=== PATIENT | male | born 1990 | race Two or more races ===

== ENCOUNTER 2018-09-15 05:00 | Emergency (ER) | payer MEDICAID ==
[~2018-09-15] VITALS: Ht 175.3 cm; Wt 114.0 kg
[2018-09-15] MEDS ORDERED: VISCOUS LIDOCAINE 2% 15 ML UDC MM STA (06:24)
[2018-09-15 07:10] VITALS: BP 106/70
== END 2018-09-15 07:20 | disposition home or self-care (01) ==
LOC: ER 05:00
DX: K62.89 Other specified diseases of anus and rectum (principal); F12.10 Cannabis abuse, uncomplicated
CPT/HCPCS: 99283